=== PATIENT | female | born 1980 | race Caucasian/White ===

== ENCOUNTER 2018-01-24 08:22 | Emergency (ER) | payer OTHER ==
[~2018-01-24] VITALS: Ht 170.2 cm; Wt 127.0 kg
[~2018-01-24 08:22] MED LIST: THRIVE TOP; ZESTORETIC 20-1 EAC3 PO
[2018-01-24] MEDS ORDERED: FISH OIL 1,001000 M2 PO (08:27)
[2018-01-24 08:59] LABS: URINE BILIRUBIN NEGATIVE (Negative); URINE BLOOD NEGATIVE (Negative); URINE CLARITY CLEAR; URINE COLOR YELLOW; URINE GLUCOSE-RANDOM NEGATIVE (Negative); URINE KETONES NEGATIVE (Negative); URINE LEUKOCYTES-REFLEX NEGATIVE (Negative); URINE NITRITE-REFLEX NEGATIVE (Negative); URINE PROTEIN NEGATIVE (Negative); URINE SPECIFIC GRAVITY <= 1.005 (1.005-1.030); URINE UROBILINOGEN 0.2 E.U./dl (0.2-1.0)
[2018-01-24 09:03] LABS: ABSOLUTE EOSINOPHILS 0.5 thou/uL (0.0-0.7); ABSOLUTE MONOCYTES 0.7 thou/uL (0.0-1.2); ABSOLUTE NEUTROPHILS 6.7 thou/uL (1.6-8.1); BASOPHILS 0.4 %; EOSINOPHILS 4.9 %; HEMATOCRIT 41.1 % (37.0-47.0); HEMOGLOBIN 13.5 gm/dL (12.0-15.0); LYMPHOCYTES 27.7 %; MCH 29.8 pg (26.0-34.0); MCHC 32.7 g/dL (28.0-37.0); MCV 91.1 fL (80.0-100.0); MONOCYTES 6.1 %; MPV 8.9 fl. (7.2-11.1); NUCLEATED RBCS 0 /100WBC; PLATELET COUNT* 333 thou/uL (150-400); POLYS 60.9 %; RBC 4.51 mil/uL (4.20-5.00); RDW-CV 13.4 % (10.5-14.5); WBC 10.9 thou/uL (4.0-11.0)
[2018-01-24 09:07] LABS: ANION GAP 11 mmol/L (7-16); BUN 14 mg/dL (7-18); CALCIUM 8.7 mg/dL (8.5-10.1); CHLORIDE 101 mmol/L (98-107); CO2 26 mmol/L (21-32); CREATININE 0.8 mg/dL (0.6-1.3); GLUCOSE 128 mg/dL (70-99); POTASSIUM 3.5 mmol/L (3.5-5.1); SODIUM 138 mmol/L (136-145)
[2018-01-24 09:14] LABS: ALBUMIN 3.9 g/dL (3.4-5.0); ALKALINE PHOSPHATASE 65 U/L (46-116); SGOT 18 U/L (15-37); SGPT 25 U/L (30-65); TOTAL BILIRUBIN 0.2 mg/dL (<0.1-1.0); TOTAL PROTEIN 7.8 g/dL (6.4-8.2); TROPONIN-I LEVEL <0.06 ng/mL (<0.06)
[2018-01-24 11:40] VITALS: BP 145/85
--- NOTE | 2018-01-24 16:45 | EKG ---
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
== END 2018-01-24 11:40 | disposition home or self-care (01) ==
LOC: M.ERS 08:22
PROVIDERS: Emergency Medicine Emergency Medical Services
DX: E86.0 Dehydration (principal); I10 Essential (primary) hypertension; Z90.710 Acquired absence of both cervix and uterus; Z91.02 Food additives allergy status

== ENCOUNTER → 2018-05-10 | Outpatient (CLI) | payer OTHER ==
[~2018-05-10] MED LIST changes: +FISH OIL 1,001000 M2 PO
== END ==
LOC: M.ULTRA 13:03
DX: R22.42 Localized swelling, mass and lump, left lower limb (principal)

== ENCOUNTER → 2018-08-28 | Outpatient (CLI) | payer OTHER ==
--- NOTE | 2018-08-29 14:36 | 24HR ---
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 The mean heart rate was 87 bpm. The maximum heart rate was 158 bpm corresponding with sinus tachycardia at 3:48 PM. The minimum heart rate was 57 bpm corresponding with sinus bradycardia at 8:50 PM. Tachycardia defined as heart rate greater than 100 bpm 25% of the monitored time. Bradycardia defined as heart rate less than 50 bpm was present less than 1% of the time. There was no significant supraventricular arrhythmia noted. There were occasional unifocal premature ventricular contractions. There was no significant sustained or nonsustained ventricular arrhythmia. There were no significant pauses and rhythm. There was no evidence of underlying atrial fibrillation or atrial flutter. A diary was submitted with this Holter monitor with no symptoms recorded. Electronically Signed On 08-29-2018 14:36:09 CDT by Ludwin Fitzgerald [email or web address] <ELECTRONICALLY SIGNED> By: Ludwin Fitzgerald MD, [facility] 08/29/18 1436 1218 1218 Ludwin Fitzgerald MD, [facility] /EPI
== END ==
LOC: M.CRD 09:27
DX: R00.2 Palpitations (principal)

== ENCOUNTER 2020-03-12 17:30 | Emergency (ER) | payer OTHER ==
[~2020-03-12] VITALS: Ht 170.2 cm; Wt 119.8 kg
[2020-03-12 17:59] LABS: ABSOLUTE LYMPHOCYTES 1.4 thou/uL (0.8-5.3); ABSOLUTE MONOCYTES 0.7 thou/uL (0.0-1.2); ABSOLUTE NEUTROPHILS 4.4 thou/uL (1.6-8.1); BASOPHILS 0.4 %; EOSINOPHILS 0.4 %; HEMATOCRIT 45.5 % (37.0-47.0); HEMOGLOBIN 15.4 gm/dL (12.0-15.0); LYMPHOCYTES 21.3 %; MCH 30.5 pg (26.0-34.0); MCHC 33.8 g/dL (28.0-37.0); MCV 90.2 fL (80.0-100.0); MONOCYTES 11.3 %; MPV 8.4 fl. (7.2-11.1); NUCLEATED RBCS 0 /100WBC; PLATELET COUNT* 224 thou/uL (150-400); POLYS 66.6 %; RBC 5.04 mil/uL (4.20-5.00); RDW-CV 12.7 % (10.5-14.5); WBC 6.6 thou/uL (4.0-11.0)
[2020-03-12 18:07] LABS: CALCIUM 8.9 mg/dL (8.5-10.1); CREATININE 1.1 mg/dL (0.6-1.3); POTASSIUM 3.4 mmol/L (3.5-5.1)
[2020-03-12 18:10] LABS: APTT 27.6 Seconds (25.0-31.3); PROTIME 10.3 Seconds (9.20-11.50)
[2020-03-12 18:17] LABS: TOTAL BILIRUBIN 0.3 mg/dL (<0.1-1.0); TOTAL PROTEIN 8.5 g/dL (6.4-8.2)
[2020-03-12] MEDS ORDERED: ZOFRAN ODT4 MG SUBLING (18:52)
[2020-03-12] MEDS ORDERED: ZPAK PO (18:52)
[2020-03-12] MEDS ORDERED: PREDNISONE 20 M20 M1 PO (18:52)
[2020-03-12 20:07] VITALS: BP 132/70
--- NOTE | 2020-03-14 14:01 | EKG ---
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[facility] : 1980 Requested By: Jerman Law Order Number: [id number] MD: Ludwin Fitzgerald Measurements Intervals [place] Rate: 120 P: -5 NV: 157 QRS: 40 QRSD: 89 T: 23 QT: 315 QTc: 445 Interpretive Statements Sinus tachycardia Compared to ECG 01/24/2018 08:34:46 Sinus rhythm no longer present Electronically Signed On 03-14-2020 14:01:30 [employer] by Ludwin Fitzgerald [email or web address] <ELECTRONICALLY SIGNED> By: Ludwin Fitzgerald MD, [facility] 03/14/20 1401 50 50 Ludwin Fitzgerald MD, FAC /EPI
== END 2020-03-12 20:08 | disposition home or self-care (01) ==
LOC: M.ERS 17:30
PROVIDERS: Family Medicine
DX: U07.1 COVID-19 (principal); I10 Essential (primary) hypertension; Z79.899 Other long term (current) drug therapy; Z91.018 Allergy to other foods; Z88.8 Allergy status to other drugs, medicaments and biological substances; Z90.49 Acquired absence of other specified parts of digestive tract

== ENCOUNTER → 2020-03-31 | Outpatient (CLI) | payer OTHER ==
[~2020-03-31] MED LIST changes: +PREDNISONE 20 M20 M1 PO; +ZOFRAN ODT4 MG SUBLING; +ZPAK PO
--- NOTE | 2020-03-31 12:49 | 2DMMODE ---
[place] [address] 2 D/M-MODE ECHOCARDIOGRAM Name: YAQUELIN TREVINO Room: [facility]#: [id number] Admission: 03/31/20 Attend Phys: Omero Contreras DO Discharge: Date of : 76 Date of Service: 03/31/20 1249 Report #: [id number] THIS REPORT FOR: cc: Omero Contreras Brent DO Holkins,Irwin Carr MD [facility] ~ APPROVED REPORT Study performed: 03/31/2020 09:02:23 EXAM: Comprehensive 2D, Doppler, and color-flow Echocardiogram Patient Location: Out-Patient BSA: 2.26 HR: 88 bpm Other Information Study Quality: Good Indications Palpitations 2D Dimensions IVSd: 7.86 (7-11mm) LVOT Diam: 19.79 (18-24mm) LVDd: 48.79 mm PWd: 10.02 (7-11mm) Ascending Ao: 24.94 (22-36mm) LVDs: 30.40 (25-40mm) Aortic Root: 27.53 mm Volumes Left Atrial Volume (Systole) LA ESV Index: 16.30 mL/m2 Aortic Valve AoV Peak Wu.: 1.47 m/s AO Peak Gr.: 8.68 mmHg LVOT Max P.75 mmHg AO Mean Gr.: 4.73 mmHg LVOT Mean P.19 mmHg LVOT Max V: 1.09 m/s AO V2 VTI: 26.44 cm LVOT Mean V: 0.67 m/s ANTELMO (VTI): 2.19 cm2 LVOT V1 VTI: 18.81 cm Mitral Valve E/A Ratio: 1.10 [place] [address] 2 D/M-MODE ECHOCARDIOGRAM Name: YAQUELIN TREVINO Room: [facility]#: [id number] Admission: 03/31/20 Attend Phys: Omero Contreras DO Discharge: Date of : 76 Date of Service: 03/31/20 1249 Report #: [id number] MV Decel. Time: 277.64 ms MV E Max Wu.: 0.73 m/s MV PHT: 80.52 ms MVA (PHT): 2.73 cm2 TDI E/Lateral E': 5.62 E/Medial E': 6.08 Medial E' Wu.: 0.12 m/s Lateral E' Wu.: 0.13 m/s Pulmonary Valve PV Peak Wu.: 1.03 m/s PV Peak Gr.: 4.27 mmHg Left Ventricle The left ventricle is normal size. There is normal LV segmental wall motion. There is normal left ventricular wall thickness. Left ventricular systolic function is normal. The left ventricular ejection fraction is within the normal range. LVEF is 55-60%. The left ventricular diastolic function is normal. Right Ventricle The right ventricle is normal size. The right ventricular systolic function is normal. Atria The left atrium size is normal. The right atrium size is normal. Aortic Valve The aortic valve is normal in structure. No aortic regurgitation is present. There is no aortic valvular stenosis. Mitral Valve The mitral valve is normal in structure. There is no mitral valve regurgitation noted. No evidence of mitral valve stenosis. Tricuspid Valve The tricuspid valve is normal in structure. There is no tricuspid valve regurgitation noted. Pulmonic Valve The pulmonary valve is normal in structure. There is no pulmonic valvular regurgitation. Great Vessels The aortic root is normal in size. IVC [place] [address] 2 D/M-MODE ECHOCARDIOGRAM Name: YAQUELIN TREVINO Room: [facility]#: [id number] Admission: 03/31/20 Attend Phys: Omero Contreras DO Discharge: Date of : 76 Date of Service: 03/31/20 1249 Report #: [id number] collapses >50% with inspiration. Pericardium There is no pericardial effusion. <Conclusion> The left ventricle is normal size. There is normal left ventricular wall thickness. Left ventricular systolic function is normal. The left ventricular ejection fraction is within the normal range. LVEF is 55-60%. The left ventricular diastolic function is normal. The right ventricle is normal size. The left atrium size is normal. The aortic valve is normal in structure. The mitral valve is normal in structure. The tricuspid valve is normal in structure. IVC is normal in size and collapses >50% with inspiration. There is no pericardial effusion. There is normal LV segmental wall motion. <ELECTRONICALLY SIGNED> By: Irwin Nova MD, FACC 03/31/20 1249 1249 1249 Irwin Nova MD, FACC /INF
--- NOTE | 2020-04-05 11:51 | 24HR ---
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 sinus rhtyhm with tachycardia and bradycardia 2. occassional pvc and rare pac 3. symptoms did not correlate with any arrhythmia Electronically Signed On 04-05-2020 11:51:06 [employer] by Rudi Guerrier [email or web address] <ELECTRONICALLY SIGNED> By: Rudi Guerrier MD, [facility] 04/05/20 1151 3 3 Rudi Guerrier MD, [facility] /EPI
== END ==
LOC: M.CRD 03-26 11:27
PROVIDERS: ATTEND Family Medicine
DX: R00.1 Bradycardia, unspecified (principal); R00.0 Tachycardia, unspecified

== ENCOUNTER → 2020-04-28 | Outpatient (CLI) | payer OTHER | LOC: M.RAD 07:39 | DX: Z12.31 Encounter for screening mammogram for malignant neoplasm of breast (principal) ==

== ENCOUNTER → 2021-02-09 | Outpatient (CLI) | payer OTHER ==
[2021-02-09 09:14] LABS: ALBUMIN 3.8 g/dL (3.4-5.0); CALCIUM 8.6 mg/dL (8.5-10.1); CREATININE 0.9 mg/dL (0.6-1.3); POTASSIUM 3.9 mmol/L (3.5-5.1); TOTAL BILIRUBIN 0.3 mg/dL (<0.1-1.0)
[2021-02-10 19:07] LABS: ANA INTERPRETATION Negative (())
== END ==
LOC: M.LAB 07:25 → M.RAD 07:25
DX: Z12.31 Encounter for screening mammogram for malignant neoplasm of breast (principal); I10 Essential (primary) hypertension; E28.2 Polycystic ovarian syndrome; R00.2 Palpitations; R53.83 Other fatigue; L65.9 Nonscarring hair loss, unspecified

== ENCOUNTER → 2021-02-14 | Outpatient (CLI) | payer OTHER ==
[2021-02-14 07:05] LABS: ABSOLUTE EOSINOPHILS 0.3 thou/uL (0.0-0.7); ABSOLUTE LYMPHOCYTES 2.2 thou/uL (0.8-5.3); ABSOLUTE MONOCYTES 0.5 thou/uL (0.0-1.2); ABSOLUTE NEUTROPHILS 3.5 thou/uL (1.6-8.1); BASOPHILS 0.5 %; EOSINOPHILS 4.1 %; HEMATOCRIT 40.5 % (37.0-47.0); HEMOGLOBIN 13.7 gm/dL (12.0-15.0); LYMPHOCYTES 33.6 %; MCH 30.9 pg (26.0-34.0); MCHC 33.7 g/dL (28.0-37.0); MCV 91.6 fL (80.0-100.0); MONOCYTES 7.4 %; MPV 8.8 fl. (7.2-11.1); NUCLEATED RBCS 0 /100WBC; PLATELET COUNT* 270 thou/uL (150-400); POLYS 54.4 %; RBC 4.42 mil/uL (4.20-5.00); RDW-CV 13.3 % (10.5-14.5); WBC 6.5 thou/uL (4.0-11.0)
[2021-02-14 07:18] LABS: CHOLESTEROL 204 mg/dL (<200); HDL CHOLESTEROL 47 mg/dL (>40); LDL CHOLESTEROL 139 mg/dL (<100); TC:HDL 4.3 Ratio (Not establshd); TRIGLYCERIDE 91 mg/dL (<150); VLDL 18 mg/dL (<40)
[2021-02-14 07:19] LABS: SERUM ASSESSMENT Clear
[2021-02-15 04:06] LABS: GLYCOHEMOGLOBIN (HGB A1C) 5.5 % (4.8-5.6)
== END ==
LOC: M.LAB 06:30
PROVIDERS: ATTEND Nurse Practitioner Gerontology
DX: Z13.0 Encounter for screening for diseases of the blood and blood-forming organs and certain disorders involving the immune mechanism (principal); Z13.220 Encounter for screening for lipoid disorders; Z13.1 Encounter for screening for diabetes mellitus; E28.2 Polycystic ovarian syndrome; I10 Essential (primary) hypertension; L65.9 Nonscarring hair loss, unspecified; L30.9 Dermatitis, unspecified; R63.5 Abnormal weight gain; R53.83 Other fatigue; R00.2 Palpitations